=== PATIENT | female | born 1990 | race Caucasian/White ===

== ENCOUNTER 2021-10-12 21:28 | Emergency (ER) | payer OTHER, SELFPAY ==
--- NOTE | ~2021-10-12 | CT_ITS ---
EXAMINATION: CT ABDOMEN AND PELVIS WITH CONTRAST CLINICAL INFORMATION: Perirectal abscess/fistula. COMPARISON: None TECHNIQUE: Multidetector volumetric images were obtained from the superior aspect of the liver through the pubic symphysis following administration 85 mL of Omnipaque 350 intravenous contrast. Sagittal and coronal reformatted images were obtained on the technologist's workstation. Oral contrast: No This CT examination was performed using dose optimization techniques as appropriate, variously including the following: *Automated exposure control *Adjustment of mA and/or kV according to patient size (this includes techniques or standardized protocols for targeted exams where dose is matched to indication/reason for exam; i.e. extremities or head) *Use of iterative reconstruction technique DLP: 430 mGy-cm FINDINGS: LUNG BASES: The visualized lung bases are unremarkable. LIVER, GALLBLADDER, AND BILIARY TREE: The liver is normal in size, shape, and attenuation. No focal hepatic lesion or biliary ductal dilatation is present. Gallbladder unremarkable. PANCREAS: Unremarkable. SPLEEN: Unremarkable. ADRENAL GLANDS: Unremarkable. KIDNEYS AND URETERS: The kidneys are normal in size, shape, and attenuation. No hydronephrosis or hydroureter. There are 3 punctate nonobstructive calculi in the upper pole right kidney. There is a 1.8 cm simple cyst left kidney which is benign and requires no further follow-up. No perinephric stranding. BLADDER: Unremarkable. GASTROINTESTINAL TRACT: The small and large bowel are unremarkable. The appendix is unremarkable. ABDOMINAL WALL: No significant hernia is appreciated. LYMPH NODES: Normal. VASCULAR: Unremarkable. PELVIC VISCERA: There is a fistulous tract extending from the right medial gluteal cleft skin surface towards the right lateral aspect of the anus/anal verge, compatible with a perianal fistula. There is mild fat stranding surrounding the ischioanal fat. OSSEOUS STRUCTURES: Unremarkable. CT/CT abdomen pelvis w con IMPRESSION: * Right perianal fistula extending from the skin surface of the right gluteal cleft, to the right lateral aspect of the anus/anal verge. * Nonobstructive right intrarenal calculi.
[2021-10-12 23:49] VITALS: BP 107/71; PULSE 99; RESP 18; TEMP 36.5; O2SAT 99; BMI 22.8
[2021-10-13 02:54] VITALS: BP 104/61; PULSE 95; RESP 15; O2SAT 97
--- NOTE | 2021-10-13 04:31 | ED.SKABFB ---
HPI - Skin/Abscess/Foreign Bdy General Chief complaint: Skin/Abscess/Foreign Body Stated complaint: Abscess Time Seen by Provider: 10/13/21 03:44 Source: patient Mode of arrival: ambulatory History of Present Illness HPI narrative: 30-year-old patient who presents with fevers, chills and notes that there has been purulence drainage from a known perirectal abscess that has been ongoing for years and there is suspicion for possible fistula formation. Patient has recently moved within the state and does not have a primary care provider at this time. Patient has a history of using crystal meth and last used 3 weeks ago. Related Data Allergies Allergy/AdvReac Type Severity Reaction Status Date / Time No Known Allergies Allergy Verified 10/12/21 23:53 Review of Systems Review of Systems: Pertinent positives and negatives as stated in HPI 10 point review of systems is otherwise negative. PMFSH Past Medical History Source: nursing notes reviewed Medical History Depression Personality disorder PTSD (post-traumatic stress disorder) Substance abuse Social History Social History Use of substances other than those prescribed or required for medical reasons: Yes Substance Use Type: Crack/Cocaine Advance Directives: No Patient : No Physical Exam Vital Signs: Vital Signs: Last Vital Signs Temp 98.2 F 10/13/21 07:02 Pulse 81 10/13/21 07:02 Resp 14 10/13/21 07:02 BP 90/55 L 10/13/21 07:17 Pulse Ox 97 10/13/21 07:02 BMI result Body Mass Index 22.8 VITAL SIGNS: Reviewed. GENERAL: Well developed, well nourished, in no acute distress. HEAD: Normocephalic/atraumatic EYES: PERRLA, EOMI EARS: Ext canals without abnormality OROPHARYNX: no oral lesions noted, posterior pharynx clear LUNGS: Normal breath sounds. No adventitious sounds or accessory muscle use. SpO2<97> CARDIOVASCULAR: Regular rate and rhythm without noted murmurs ABDOMEN: Soft, non-tender, non-distended with bowel sounds. RECTAL: Noted communication within the right gluteal fold with purulence on expression and evidence of chronicity but component of induration and firmness noted tracking towards anal rectal area, but on rectal exam unable to identify appreciable communication or evidence of purulence on examining finger SKIN: Inspection of the skin reveals no rashes NEUROLOGIC: Alert and oriented x 4. Strength and sensation to light touch were grossly intact x 4. Course Course Course Narrative: 30-year-old patient with history and clinical presentation most consistent with anorectal abscess and likely fistula formation and concerning fever and chills so will pursue basic labs and likely CT of pelvis. Review of all investigations consistent with perirectal fistula that is spontaneously draining and on discussion with Surgical Services patient may be discharged without antibiotics and recommend follow-up on Friday morning. All results discussed with patient at bedside and he is noted to have a low blood pressure at baseline. MDM - Skin/Abscess/Foreign Bdy Lab Data Result diagrams: 10/13/21 05:13 10/13/21 05:13 Labs: Lab Results 10/13/21 10/13/21 10/13/21 Range/Units 05:13 05:13 05:13 WBC 5.6 (4.8-10.8) X10*3/uL RBC 4.18 L (4.20-5.50) X10*6/uL Hgb 12.0 (12.0-16.0) g/dl Hct 37.4 (37.0-47.0) % MCV 89.5 (80.0-98.0) fL MCH 28.7 (27.0-33.0) pg MCHC 32.1 (31.0-35.0) g/dl RDW 13.5 (11.0-16.0) % Plt Count 255 (160-400) X10*3/uL MPV 8.9 L (9.4-12.3) fL Immature Gran % (Auto) 0.2 (0.0-0.4) % Neut % (Auto) 49.1 (45-73) % Lymph % (Auto) 37.4 (20-40) % [place] % (Auto) 10.3 (2-11) % Eos % (Auto) 2.8 (0-4) % Baso % (Auto) 0.2 (0-2) % Lymph # (Auto) 2.1 (1.2-4.9) X10*3/uL [place] # (Auto) 0.6 (0.1-1.2) X10*3/uL Eos # (Auto) 0.2 (0.0-0.4) X10*3/uL Baso # (Auto) 0.0 (0.0-0.2) X10*3/uL Abs Immat Gran (auto) 0.01 (0.00-0.03) X10*3/uL Absolute Neuts (auto) 2.8 (2.0-8.3) x10*3/uL Absolute Nucleated RBC 0.000 (0.0-0.012) X10*3/uL Nucleated RBC % (auto) 0.0 (0.0-0.2) /100WBC Sodium 135 (135-145) mmol/L Potassium 4.5 (3.3-5.1) mmol/L Chloride 105 (96-108) mmol/L Carbon Dioxide 22 (22-29) mmol/L Anion Gap 13 (12-20) BUN 17 H (9-16) mg/dL Creatinine 0.80 (0.5-1.4) mg/dL Estim Creat Clear Calc 104.6 Estimated GFR > 60 Random Glucose 97 (60-115) mg/dL Lactic Acid 0.8 (0.5-2.0) mmol/L Calcium 9.1 (8.4-10.2) mg/dL Total Bilirubin 0.3 (0.0-1.0) mg/dL AST 72 H (5-31) U/L ALT 125 H (0-31) U/L Alkaline Phosphatase 76 (39-117) U/L Total Protein 7.1 (6.5-8.0) g/dL Albumin 3.8 (3.5-5.0) g/dL COVID-19 (ALDO) (Negative) COVID-19 Clin Com 10/13/21 Range/Units 05:17 WBC (4.8-10.8) X10*3/uL RBC (4.20-5.50) X10*6/uL Hgb (12.0-16.0) g/dl Hct (37.0-47.0) % MCV (80.0-98.0) fL MCH (27.0-33.0) pg MCHC (31.0-35.0) g/dl RDW (11.0-16.0) % Plt Count (160-400) X10*3/uL MPV (9.4-12.3) fL Immature Gran % (Auto) (0.0-0.4) % Neut % (Auto) (45-73) % Lymph % (Auto) (20-40) % [place] % (Auto) (2-11) % Eos % (Auto) (0-4) % Baso % (Auto) (0-2) % Lymph # (Auto) (1.2-4.9) X10*3/uL [place] # (Auto) (0.1-1.2) X10*3/uL Eos # (Auto) (0.0-0.4) X10*3/uL Baso # (Auto) (0.0-0.2) X10*3/uL Abs Immat Gran (auto) (0.00-0.03) X10*3/uL Absolute Neuts (auto) (2.0-8.3) x10*3/uL Absolute Nucleated RBC (0.0-0.012) X10*3/uL Nucleated RBC % (auto) (0.0-0.2) /100WBC Sodium (135-145) mmol/L Potassium (3.3-5.1) mmol/L Chloride (96-108) mmol/L Carbon Dioxide (22-29) mmol/L Anion Gap (12-20) BUN (9-16) mg/dL Creatinine (0.5-1.4) mg/dL Estim Creat Clear Calc Estimated GFR Random Glucose (60-115) mg/dL Lactic Acid (0.5-2.0) mmol/L Calcium (8.4-10.2) mg/dL Total Bilirubin (0.0-1.0) mg/dL AST (5-31) U/L ALT (0-31) U/L Alkaline Phosphatase (39-117) U/L Total Protein (6.5-8.0) g/dL Albumin (3.5-5.0) g/dL COVID-19 (ALDO) Negative (Negative) COVID-19 Clin Com See Note Discharge Plan Discharge Clinical Impression: Perianal fistula Patient Disposition: Home, Self-Care Additional Instructions: 1. Follow-up with General surgery by calling the office on Friday morning, the referral has been provided to you below. Return to the ER for worsening symptoms. Referrals: Sharif Donaldson MD [Physician] - 2 days (perianal fistula)
[2021-10-13 05:18] LABS: Basophils Percent Auto 0.2 % (0-2); Eosinophils Absolute Auto 0.2 X10*3/uL (0.0-0.4); Eosinophils Percent Auto 2.8 % (0-4); Hematocrit 37.4 % (37.0-47.0); Imm Gran Abs Auto 0.01 X10*3/uL (0.00-0.03); Imm Gran Pct Auto 0.2 % (0.0-0.4); Lymphocytes Absolute Auto 2.1 X10*3/uL (1.2-4.9); Lymphocytes Percent Auto 37.4 % (20-40); Mean Corpuscular HGB Conc 32.1 g/dl (31.0-35.0); Mean Corpuscular Hemoglobin 28.7 pg (27.0-33.0); Mean Corpuscular Volume 89.5 fL (80.0-98.0); Mean Platelet Volume 8.9 fL (9.4-12.3); Monocytes Absolute Auto 0.6 X10*3/uL (0.1-1.2); Monocytes Percent Auto 10.3 % (2-11); Neutrophils Absolute Auto 2.8 x10*3/uL (2.0-8.3); Neutrophils Percent Auto 49.1 % (45-73); Platelet Count 255 X10*3/uL (160-400); Red Blood Count 4.18 X10*6/uL (4.20-5.50); Red Cell Distribution Width 13.5 % (11.0-16.0); White Blood Count 5.6 X10*3/uL (4.8-10.8)
[2021-10-13 05:19] LABS: MANUAL DIFF FLAG NO
[2021-10-13 05:27] LABS: Lactic Acid 0.8 mmol/L (0.5-2.0)
[2021-10-13 05:34] LABS: COVID-19 Test Negative (Negative)
[2021-10-13 05:37] LABS: Alanine Aminotransferase 125 U/L (0-31); Albumin Level 3.8 g/dL (3.5-5.0); Alkaline Phosphatase 76 U/L (39-117); Anion Gap 13 (12-20); Aspartate Amino Transferase 72 U/L (5-31); Bilirubin Total 0.3 mg/dL (0.0-1.0); Blood Urea Nitrogen 17 mg/dL (9-16); Calcium 9.1 mg/dL (8.4-10.2); Carbon Dioxide 22 mmol/L (22-29); Chloride 105 mmol/L (96-108); Creatinine Clr Calc Pharmacy 104.6; Estimated Glomerular Filt Rate > 60; Glucose Random 97 mg/dL (60-115); Potassium 4.5 mmol/L (3.3-5.1); Sodium 135 mmol/L (135-145); Total Protein 7.1 g/dL (6.5-8.0)
[2021-10-13] MEDS: iohexoL 350 MG/ML 100 ML INFUS..BTL 85 ML IV (06:25)
[2021-10-13 07:02] VITALS: BP 86/49; PULSE 81; RESP 14; TEMP 36.8; O2SAT 97
[2021-10-13] MEDS: 0.9 % Sodium Chloride 1,000 ML 999 ML IV (07:16)
[2021-10-13 07:17] VITALS: BP 90/55
== END 2021-10-13 07:44 | disposition home or self-care (01) ==
PROVIDERS: Emergency Provider Student in an Organized Health Care Education/Training Program
DX: K60.3 Anal fistula (principal); Z20.822 Contact with and (suspected) exposure to COVID-19; R50.9 Fever, unspecified
CPT/HCPCS: 36415; 74177; 80053; 83605; 85025; 87040; 87635; 96360; 99284; Q9967

== ENCOUNTER → 2021-10-17 13:37 | Outpatient (BNVA) | payer OTHER, SELFPAY | PROVIDERS: Visit Provider Surgery | DX: K60.3 Anal fistula (principal) | CPT/HCPCS: 46600; 99202 ==

== ENCOUNTER 2021-11-12 13:42 | Emergency (ER) | payer OTHER, SELFPAY ==
--- NOTE | ~2021-11-12 | XR_ITS ---
EXAMINATION: XR KNEE, LEFT CLINICAL INFORMATION: Knee pain. Swelling. COMPARISON: None TECHNIQUE: Four views of the left knee. FINDINGS: Possible small suprapatellar joint effusion. No fracture. No dislocation. No focal bone lesion. Patellofemoral and femoral tibial joints are normal. No chondrocalcinosis. XR/XR knee LT 3V IMPRESSION: Possible small suprapatellar joint effusion. The knee is otherwise unremarkable.
[2021-11-12 14:51] VITALS: BP 103/62; PULSE 93; RESP 16; TEMP 36.6; O2SAT 100; BMI 23.6
--- NOTE | 2021-11-12 18:06 | ED.LOWEXIN ---
HPI - Extremity Injury (Lower) General Chief Complaint: Extremity Injury, Lower Stated Complaint: swollen knee, knee pain Time Seen by Provider: 11/12/21 16:43 Source: patient Mode of arrival: ambulatory Limitations: no limitations History of Present Illness HPI Narrative: 30 y/o female presents to the ER for evaluation of left knee pain for the last 3. She report a history of a lateral meniscus tear 7 years ago that she never got surgically repaired. She is recovering addict and now sober x2 months. She reports the pain now that she is sober is much more noticeable and this weekend she had significant knee swelling on the left. She denies any receollection of twisting injury, falls or other trauma. No pops or snaps. She reports the pain is worse when she goes down stairs and it feels tight within the knee. No ankle or hip pain. She has been using a friend's knee brace with improvement in pain and swelling. MD complaint: knee injury Onset (ago): day(s) Type of Injury: unknown Place: home Severity: moderate Relieving factors: immobilization and rest Exacerbating factors: weight bearing, movement and palpation Associated symptoms: ambulatory Other symptoms: none Related Data Home Medications Medication Instructions Recorded Confirmed amoxapine 50 mg tablet 50 mg PO BEDTIME 10/17/21 10/17/21 aripiprazole 10 mg tablet 10 mg PO DAILY 10/17/21 10/17/21 baclofen 20 mg tablet 20 mg PO BID 10/17/21 10/17/21 bupropion HCl 300 mg 24 hr tablet, 300 mg PO DAILY 10/17/21 10/17/21 extended release colchicine 0.6 mg tablet 0.6 mg PO BID 10/17/21 10/17/21 estradiol 2 mg tablet mg PO 10/17/21 10/17/21 mirtazapine 15 mg tablet 7.5 mg PO DAILY 10/17/21 10/17/21 oxcarbazepine 150 mg tablet 150 mg PO BID 10/17/21 10/17/21 prazosin 2 mg capsule 2 mg PO BEDTIME 10/17/21 10/17/21 quetiapine 100 mg tablet 100 mg PO BEDTIME 10/17/21 10/17/21 spironolactone 100 mg tablet 100 mg PO BID 10/17/21 10/17/21 topiramate 50 mg tablet 50 mg PO DAILY 10/17/21 10/17/21 ziprasidone HCl 20 mg capsule 20 mg PO BID 10/17/21 10/17/21 Previous Rx's Medication Instructions Recorded ibuprofen 600 mg tablet 600 mg PO Q8H PRN #20 tab 11/12/21 Allergies Allergy/AdvReac Type Severity Reaction Status Date / Time No Known Allergies Allergy Verified 10/12/21 23:53 Review of Systems Review of Systems: Constitutional: No Fever, No Chills Cardiovascular: No Chest Pain, No SOB Respiratory: No Cough, No Sputum Gastrointestinal: No Nausea, No Vomiting, No Diarrhea, No abdominal Pain Musculoskeletal: + joint pain, No Myalgias Skin: No Skin Lesions, No rash Neuro: No Weakness, No Numbness Heme/Lymph: No Bruising, No Lymphadenopathy PMFSH Past Medical History Medical History (Updated 11/13/21 @ 00:03 by Hernando Galindo) Anal fistula Depression Personality disorder PTSD (post-traumatic stress disorder) Substance abuse Surgical History Hx of tonsillectomy Social History Social History Substance Use Type: Crack/Cocaine Advance Directives: No Advance Directives Information Provided: No Patient : No Physical Exam Vital Signs: Vital Signs: Last Vital Signs Temp 97.9 F 11/12/21 18:25 Pulse 88 11/12/21 18:25 Resp 16 11/12/21 18:25 BP 105/84 11/12/21 18:25 Pulse Ox 99 11/12/21 18:25 BMI result Body Mass Index 23.6 Appearance: Alert. Oriented X3. No acute distress. HEENT: normal inspection CVS: Normal heart rate and rhythm. Pulses normal. Respiratory: No respiratory distress. Skin: Skin warm and dry. Normal skin color. Normal skin turgor. No rashes. Extremities: mild swelling of the superior knee joint with mild tenderness, no erythema or warmth. normal ROM. normal strength. normal DTRs. tenderness of both of the medial and lateral joint lines, negative anterior drawer test. no joint laxity appreciated. Neuro: Oriented X 3. No motor deficit. No sensory deficit. Steady gait. Course Course Course Narrative: 30 y/o female presenting to the ER with 3 days of nontraumatic left knee pain and swelling. history of an untreated meninscus tear in the same knee several years ago. swelling improved from 2 days ago with normal gait and ROM. No evidence of infection. XR with a possible small suprapatellar joint effusion, otherwise unremarkable. Placed in LINA wrap and will refer to Orthopedics for further evaluation. Patient agrees with plan. Discharge Plan Discharge Clinical Impression: Acute knee pain, Effusion of knee Patient Disposition: Home, Self-Care Instructions: Swollen Knee Joint (ED), Knee Pain (ED) Additional Instructions: Your x-ray showed a possible small joint effusion, which is fluid on the knee. This is usually reactive and due to injury. Wear the provided LINA wrap for compression and support. Rest and elevated your knee when possible. Recommend following up with the [facility] for further evaluation. Name and number below. If you develop new or worsening symptoms call 911 or come back to the ER for further evaluation. Prescriptions: New ibuprofen 600 mg tablet 600 mg PO Q8H PRN (Reason: pain) Qty: 20 0RF No Action topiramate 50 mg tablet 50 mg PO DAILY 0RF bupropion HCl 300 mg tablet extended release 24 hr 300 mg PO DAILY 0RF aripiprazole 10 mg tablet 10 mg PO DAILY 0RF prazosin 2 mg capsule 2 mg PO BEDTIME 0RF oxcarbazepine 150 mg tablet 150 mg PO BID 0RF estradiol 2 mg tablet PO 0RF mirtazapine 15 mg tablet 7.5 mg PO DAILY 0RF amoxapine 50 mg tablet 50 mg PO BEDTIME 0RF colchicine 0.6 mg tablet 0.6 mg PO BID 0RF quetiapine 100 mg tablet 100 mg PO BEDTIME 0RF spironolactone 100 mg tablet 100 mg PO BID 0RF ziprasidone HCl 20 mg capsule 20 mg PO BID 0RF baclofen 20 mg tablet 20 mg PO BID 0RF Referrals: Tristan Jackson MD [Physician] - (left knee pain, hx meniscus tear) Interventions: ED Discharge Assessment Last Done: 11/12/21 18:23 Discharge Date/Time: 11/12/21 18:26
[2021-11-12 18:25] VITALS: BP 105/84; PULSE 88; RESP 16; TEMP 36.6; O2SAT 99
== END 2021-11-12 18:26 | disposition home or self-care (01) ==
LOC: HO.ED 18:12
PROVIDERS: Emergency Provider Internal Medicine
DX: M25.462 Effusion, left knee (principal); M25.562 Pain in left knee; R60.0 Localized edema; F14.90 Cocaine use, unspecified, uncomplicated; Z79.899 Other long term (current) drug therapy
CPT/HCPCS: 73562; 99283

== ENCOUNTER 2021-12-11 05:54 | Day surgery (SDC) | payer MEDICAID, SELFPAY ==
--- NOTE | 2021-12-07 08:53 | P.CONAN_ITS ---
Documented by User: Sarai Olvera NP 12/07/21 08:54 HPI - Anesthesia Eval Consult details Narrative: 31yo F for Exam Under Anesthesia,possible fistulotomy seton placement PMFSH Active Problems Active Problems: All Active Problems (Updated 11/13/21 @ 00:03 by Hernando Galindo) Anal fistula (Acute) Past Medical History Medical History Anal fistula Depression Personality disorder PTSD (post-traumatic stress disorder) Substance abuse Transgender Surgical History Surgical History Hx of tonsillectomy Social History Social History Patient Tobacco Use Status: Current everyday Tobacco user Tobacco use type: Cigarette Cigarettes Per Day: 2 Substance Use Type: Crack/Cocaine Meds Allergies Allergy/AdvReac Type Severity Reaction Status Date / Time No Known Allergies Allergy Verified 12/04/21 11:31 Home Medications Medication Instructions Recorded Confirmed Last Taken Type amoxapine 50 mg tablet 50 mg PO BEDTIME 10/17/21 12/04/21 Unknown History aripiprazole 10 mg tablet 10 mg PO DAILY 10/17/21 12/04/21 Unknown History baclofen 20 mg tablet 20 mg PO BID 10/17/21 12/04/21 Unknown History bupropion HCl 300 mg 24 hr tablet, 300 mg PO DAILY 10/17/21 12/04/21 Unknown History extended release colchicine 0.6 mg tablet 0.6 mg PO BID 10/17/21 12/04/21 Unknown History estradiol 2 mg tablet mg PO 10/17/21 10/17/21 Unknown History mirtazapine 15 mg tablet 7.5 mg PO DAILY 10/17/21 12/04/21 Unknown History oxcarbazepine 150 mg tablet 150 mg PO BID 10/17/21 12/04/21 Unknown History prazosin 2 mg capsule 2 mg PO BEDTIME 10/17/21 12/04/21 Unknown History quetiapine 100 mg tablet 100 mg PO BEDTIME 10/17/21 12/04/21 Unknown History spironolactone 100 mg tablet 100 mg PO BID 10/17/21 12/04/21 Unknown History topiramate 50 mg tablet 50 mg PO DAILY 10/17/21 12/04/21 Unknown History ziprasidone HCl 20 mg capsule 20 mg PO BID 10/17/21 12/04/21 Unknown History Exam Exam Date and Time: December 07, 2021 0853 Pertinent Lab Results Pertinent Lab Results: Laboratory Tests 10/13/21 10/13/21 05:13 05:13 WBC 5.6 Hgb 12.0 Hct 37.4 Plt Count 255 Sodium 135 Potassium 4.5 Chloride 105 Carbon Dioxide 22 BUN 17 H Creatinine 0.80 Assessment and Plan Assessment Anesthesia Assessment: Chart Reviewed Documented by User: Miguel Frank MD 12/11/21 15:53 [facility] Past Medical History Medical History Anal fistula Depression Personality disorder PTSD (post-traumatic stress disorder) Substance abuse Transgender Family History Family history of problems with anesthesia: No Surgical History Surgical History Hx of tonsillectomy History of Problems with Anesthesia: No Social History Social History Patient Tobacco Use Status: Current everyday Tobacco user Tobacco use type: Cigarette Cigarettes Per Day: 2 Substance Use Type: Crack/Cocaine Meds Allergies Allergy/AdvReac Type Severity Reaction Status Date / Time No Known Allergies Allergy Verified 12/04/21 11:31 Home Medications Medication Instructions Recorded Confirmed Last Taken Type amoxapine 50 mg tablet 50 mg PO BEDTIME 10/17/21 12/04/21 Unknown History aripiprazole 10 mg tablet 10 mg PO DAILY 10/17/21 12/04/21 Unknown History baclofen 20 mg tablet 20 mg PO BID 10/17/21 12/04/21 Unknown History bupropion HCl 300 mg 24 hr tablet, 300 mg PO DAILY 10/17/21 12/04/21 Unknown History extended release colchicine 0.6 mg tablet 0.6 mg PO BID 10/17/21 12/04/21 Unknown History estradiol 2 mg tablet mg PO 10/17/21 10/17/21 Unknown History mirtazapine 15 mg tablet 7.5 mg PO DAILY 10/17/21 12/04/21 Unknown History oxcarbazepine 150 mg tablet 150 mg PO BID 10/17/21 12/04/21 Unknown History prazosin 2 mg capsule 2 mg PO BEDTIME 10/17/21 12/04/21 Unknown History quetiapine 100 mg tablet 100 mg PO BEDTIME 10/17/21 12/04/21 Unknown History spironolactone 100 mg tablet 100 mg PO BID 10/17/21 12/04/21 Unknown History topiramate 50 mg tablet 50 mg PO DAILY 10/17/21 12/04/21 Unknown History ziprasidone HCl 20 mg capsule 20 mg PO BID 10/17/21 12/04/21 Unknown History Exam Airway Mallampati Class: II TM Dist: >3cm Neck ROM: Full Loose/Missing/Broken Teeth: Yes (Chipped teeth ) Heart: S1 , S2 Lungs: b/l breath sounds Assessment and Plan Assessment Anesthesia Assessment: Anesthesia Plan Discussed Final Anesthetic Review Family History of Problems with Anesthesia: No History of Problems with Anesthesia: No NPO: Yes ASA Class: II Final Preanesthetic Review: Meds/Allgs Chart Reviewed, Consent Obtained/Reviewed and Anes Risks/Benef Reviewed Patient Risk: Intermediate Procedure Risk: Intermediate Anesthetic Plan Anesthetic Plan: GA Disposition: Standard PACU and Inp. Admit - Standard Bed
[2021-12-11 06:07] VITALS: BMI 24.3
[2021-12-11 06:27] LABS: Amphetamine Screen Urine Not Detected (Not Detect); Barbiturates, Urine Not Detected (Not Detect); Benzodiazepines Screen Urine Not Detected (Not Detect); Cannabinoid Screen Urine Not Detected (Not Detect); Cocaine Screen Urine Not Detected (Not Detect); Fentanyl, urine Not Detected (Not Detect); Opiate Screen Urine Not Detected (Not Detect); Phencyclidine Screen Urine Not Detected (Not Detect)
[2021-12-11 06:38] VITALS: BP 103/59; PULSE 89; RESP 16; TEMP 36.7; O2SAT 103
[2021-12-11] MEDS: Lactated Ringers 1,000 ML 100 ML IVCONT (06:46)
--- NOTE | 2021-12-11 07:20 | MHC.SHP ---
Pre-Procedural Eval Section A Date of Service: 12/11/21 Section B Chief Complaint: anal fistula Details of Present Illness: has had recurrent drainage from the perianal area Relevant Family History (Specify if Yes): No Relevant Social History: None Present Medications: see Short Stay Collaborative assessment Medical History: Significant History (PTSD, substance abuse, depression) Allergies: Allergies Allergy/AdvReac Type Severity Reaction Status Date / Time No Known Allergies Allergy Verified 12/04/21 11:31 Review of Systems Sugical H&P ROS: Negative: Constitution, Cardiovascular, Respiratory, Neurological, Psychiatric, Hem-Onc, Allergic/Immunologic, Gastrointestinal, Genitourinary, Musculoskeletal, Integumentary, Endocrine and Eyes/Ears/Nose/Throat Exam Surgical H&P Exam: Normal: HEENT, Normal: Heart, Normal: Lungs, Normal: Extremities, Normal: Abdomen, Normal: Skin and Normal: Neurological Exam Comment: sinus on right perianal area Plan Diagnosis/Plan: Unchanged I have reviewed the history and physical and performed a pertinent physical examination on my patient. No changes have occurred unless specified.
--- NOTE | 2021-12-11 08:01 | W.PM.OPN ---
Operative Note Operative Note Date of Service: 12/11/21 Narrative: preop diagnosis: Anal fistula Postop diagnosis: Anal fistula Procedure: Exam under anesthesia, placement of seton for anal fistula Surgeon: Sharif Donaldson Patient is a 31-year-old female with an area of persistent drainage near the anus, along with swelling and tenderness. Examination in the office revealed what appeared to be an external fistulous opening on the right perianal area about 4.5 cm from the anal verge. I had scheduled her for exam under anesthesia and seton placement and possible fistulotomy. She understood proceduresand were aware of the risks, benefits, and alternatives She was brought to the operating room and placed in prone mee-knife position under general anesthesia via endotracheal tube. The buttocks were retracted with wide tape laterally. The perianal area was prepped and draped in the usual sterile fashion. A surgical time-out was done. The patient received Cefotan 2 g IV preoperatively. I infiltrated the perianal area with lidocaine 1%. Examination of the perianal area showed sinus to the right about 0.5 cm frbom anal verge. I inserted the Joy Peguero retractor. I examined the anal canal circumferentially. There were no other lesions. There was what appeared to be a small indurated area on the right anal canal at level dentate line consistent with the internal fistulous opening. I inserted a probe through the external fistulous opening and gently advanced this to the tract. This led easily to the internal fistulous opening without any resistance. I passed a vessel loop through this entire tract using the probe. I closed the vessel loop and tied this with a silk 3-0 tie to close the loop. I noted the fistulous tract by dividing the overlying skin and subcutaneous layer at the external sinus using electrocautery. Once hemostasis was ensured, I proceeded to infiltrate the perianal area with Marcaine 0.5% for postop SAUL. The procedure was then completed. The patient tolerated the procedure well. There were no complications noted. Initial and final counts of sponges and instruments were correct. Estimated blood loss was less than 5 cc . The patient was extubated without difficulty and transferred to the recovery room with stable vital signs.
[2021-12-11 08:21] VITALS: BP 96/56; PULSE 96; RESP 10; TEMP 36.4; O2SAT 100
[2021-12-11 08:25] VITALS: BP 83/59; PULSE 95; RESP 16; O2SAT 100
[2021-12-11 08:30] VITALS: BP 111/69; PULSE 95; RESP 16; O2SAT 98
[2021-12-11 08:35] VITALS: BP 95/61; PULSE 78; RESP 16; O2SAT 98
[2021-12-11 08:51] VITALS: BP 104/65; PULSE 79; RESP 16; TEMP 36.6; O2SAT 100
== END 2021-12-11 09:33 | disposition home or self-care (01) ==
PROVIDERS: Nurse Practitioner; Visit Provider Surgery
PROC: (CPT 46020; principal; 2021-12-11 07:30)
DX: K60.3 Anal fistula (principal); F32.A Depression, unspecified; F60.9 Personality disorder, unspecified; F19.10 Other psychoactive substance abuse, uncomplicated; F43.10 Post-traumatic stress disorder, unspecified; F64.0 Transsexualism; Z79.899 Other long term (current) drug therapy
CPT/HCPCS: 46020; 80307; J1100; J1885; J2250; J2370; J2405; J3010

== ENCOUNTER → 2022-03-06 11:06 | Outpatient (BNVA) | payer MEDICAID, SELFPAY | PROVIDERS: Visit Provider Surgery | DX: K60.3 Anal fistula (principal) | CPT/HCPCS: 17250; 99212 ==

== ENCOUNTER → 2022-05-02 12:48 | Outpatient (BNVA) | payer MEDICAID, SELFPAY | PROVIDERS: Visit Provider Surgery | DX: K60.3 Anal fistula (principal) | CPT/HCPCS: 99212 ==

== ENCOUNTER → 2022-05-09 13:38 | Outpatient (BNVA) | payer MEDICAID, SELFPAY | PROVIDERS: Visit Provider Surgery | DX: K60.3 Anal fistula (principal) | CPT/HCPCS: 99212 ==

== ENCOUNTER → 2022-05-30 10:07 | Outpatient (BNVA) | payer MEDICAID, SELFPAY | PROVIDERS: Visit Provider Surgery | DX: K60.3 Anal fistula (principal) | CPT/HCPCS: 99212 ==

== ENCOUNTER → 2022-07-03 09:17 | Outpatient (BNVA) | payer MEDICAID, SELFPAY | PROVIDERS: Visit Provider Surgery | DX: Z09 Encounter for follow-up examination after completed treatment for conditions other than malignant neoplasm (principal); Z87.19 Personal history of other diseases of the digestive system | CPT/HCPCS: 99212 ==